=== PATIENT | male | born 1995 | race Two or more races ===

== ENCOUNTER 2024-07-06 16:12 | Emergency (ER) | payer MEDICAID ==
[~2024-07-06] VITALS: Ht 177.8 cm; Wt 65.8 kg
[2024-07-06] MEDS ORDERED: LIDOCAINE 0.5%-EPI 1:200,000 50 ML VIAL ONE (16:39)
[2024-07-06] MEDS ORDERED: dexAMETHasone 1 MG/ML UDC ONE (16:44)
[2024-07-06] MEDS: dexaMETHasone SOD PHOSPHATE 10 MG/ML VIAL MC ONE (16:49)
[2024-07-06] MEDS ORDERED: AMOX-430 PO (17:30)
[2024-07-06 17:38] VITALS: BP 117/88; TEMP 98.7; O2SAT 96
== END 2024-07-06 17:38 | disposition home or self-care (01) ==
LOC: ER 16:12
DX: J36 Peritonsillar abscess (principal); F17.200 Nicotine dependence, unspecified, uncomplicated; Z60.2 Problems related to living alone
CPT/HCPCS: 42999; 99284; A6407; J3490; J8540

== ENCOUNTER 2024-07-08 10:22 | Emergency (ER) | payer MEDICAID ==
[~2024-07-08] VITALS: Ht 177.8 cm; Wt 65.8 kg
[~2024-07-08 10:22] MED LIST: AMOX-430 PO
[2024-07-08] MEDS ORDERED: KETOROLAC TROMETHAMINE 15 MG/ML VIAL ONE (10:45)
[2024-07-08 11:02] LABS: BASOPHILS % (AUTO) 0.1 % (0.0-2.0); EOSINOPHILS % (AUTO) 0.2 % (0.0-6.0); HEMATOCRIT 45 % (39-51); LYMPHOCYTES # (AUTO) 0.7 K/uL (0.8-4.8); LYMPHOCYTES % (AUTO) 4.2 % (20.0-44.0); MEAN CORPUSCULAR HEMOGLOBIN 30 PG (26.0-33.0); MEAN CORPUSCULAR HGB CONC 34 g/dl (31.0-36.0); MEAN CORPUSCULAR VOLUME 89 fL (80-96); MONOCYTES # (AUTO) 0.9 K/uL (0.1-1.30); MONOCYTES % (AUTO) 5.5 % (2.0-12.0); NEUTROPHILS # (AUTO) 15.1 K/uL (1.8-8.9); PLATELET COUNT (AUTO) 434 K/uL (150-450); RED BLOOD CELL COUNT(AUTO) 5.04 MIL/uL (4.5-6.0); RED CELL DISTRIBUTION WIDTH 12.8 % (11.5-15.0); WHITE BLOOD COUNT (AUTO) 16.8 K/uL (4.3-11.0)
[2024-07-08] MEDS: IV NS 0.9% 500 ML BAG IV ONE (11:10)
[2024-07-08 11:11] LABS: CALCIUM, SERUM 9.1 mg/dL (8.5-10.1); POTASSIUM 4.1 mmol/L (3.5-5.1)
[2024-07-08] MEDS: KETOROLAC TROMETHAMINE 15 MG/ML VIAL IV ONE (11:11)
[2024-07-08] MEDS ORDERED: IOHEXOL-300 100 ML VIAL IV ONE (11:22)
[2024-07-08] MEDS ORDERED: CT SWABBABLE VALVE TRANS SET 1 EA INFUS.SET MC ONE (11:22)
[2024-07-08] MEDS ORDERED: IV NS 0.9% 250 ML IV ONE (11:22)
[2024-07-08] MEDS: PIPERACILLIN /TAZOBACTAM 3.375 G in IV D5W 50 ML IV ONE (11:36)
[2024-07-08] MEDS ORDERED: KETOROLAC TROMETHAMINE INJ 30 MG/ML VIAL ONE (14:16)
[2024-07-08] MEDS: KETOROLAC TROMETHAMINE INJ 30 MG/ML VIAL IV ONE (14:19)
[2024-07-08 16:01] VITALS: BP 134/77; TEMP 98.2; O2SAT 98
== END 2024-07-08 16:59 | disposition left against medical advice (07) ==
LOC: ER 10:31
DX: J36 Peritonsillar abscess (principal); F17.200 Nicotine dependence, unspecified, uncomplicated; Z60.2 Problems related to living alone
CPT/HCPCS: 99285; 96365; 70491; 96375; 96376; 85025; 80048; 36415; J1885 ×2; J2543; J7060; J7030; J7050; Q9967